=== PATIENT | female | born 1995 | race Caucasian/White ===

== ENCOUNTER 2022-10-29 19:16 | Emergency (ER) | payer MEDICAID ==
[~2022-10-29] VITALS: Ht 160 cm; Wt 52.2 kg
[2022-10-29 20:43] VITALS: BP 140/72
== END 2022-10-30 02:21 | disposition home or self-care (01) ==
LOC: ER 19:20
DX: S06.0XAA Concussion with loss of consciousness status unknown, initial encounter (principal); W22.8XXA Striking against or struck by other objects, initial encounter; Y93.89 Activity, other specified; Y92.89 Other specified places as the place of occurrence of the external cause; Y99.8 Other external cause status
CPT/HCPCS: 70450-TC